=== PATIENT | male | born 1955 | race Caucasian/White ===

== ENCOUNTER 2017-08-04 12:06 | Inpatient (IN) ==
[2017-08-04] MEDS ORDERED: LEVOFLOXACIN INJ 750 MG in PREMIX 1 EACH IV STA (12:24)
[2017-08-04] MEDS ORDERED: methylPREDNISolone SOD SUC 125 MG/2 ML VIAL IV STA (12:24)
[2017-08-04] MEDS ORDERED: ALBUTEROL 2.5 MG/3 ML NEB RESP TX SCH (12:30)
[2017-08-04 12:33] LABS: Basophils % 0.5 % (0.0-0.8); Eosinophils # 0.1 10*3/uL (0.0-0.87); Eosinophils % 1.3 % (0.00-10.9); Hematocrit 44.4 VOL% (42.0-52.0); Hemoglobin 14.5 GM/DL (14.0-18.0); Immature Granulocytes % 0.3 %; Immature Granulocytes Absolute 0.02 #; Lymphocytes # 2.1 10*3/uL (1.4-4.0); Lymphocytes % 34.3 % (21.2-54.2); Mean Corpuscular HGB Conc 32.7 GM/DL (32-36); Mean Corpuscular Hemoglobin 32 PG (27-34); Mean Corpuscular Volume 98.9 FL (87-102); Mean Platelet Volume 10.6 FL (9.6-12.0); Monocytes # 0.7 10*3/uL (0.11-0.8); Monocytes % 11.9 % (1.7-12.7); Neutrophils # 3.2 10*3/uL (1.4-7.4); Neutrophils % 51.7 % (38.7-73.9); Platelet Count 114 T/CUMM (130-400); Red Blood Count 4.49 MC/CUMM (3.8-5.5); Red Cell Distribution Width 13.2 % (9.3-17.3); White Blood Count 6.2 T/CUMM (4-12)
[2017-08-04 12:49] LABS: Alanine Aminotransferase 52 U/L (16-61); Albumin 3.7 G/DL (3.4-5.0); Alkaline Phosphatase 68 U/L (45-117); Aspartate Amino Transferase 52 U/L (0-37); Bilirubin,Total < 0.39 MG/DL (0.2-1.0); Blood Urea Nitrogen 19 MG/DL (7-18); Calcium 8.3 MG/DL (8.5-10.1); Glucose 135 MG/DL (74-106); Osmolality,Calculated 282.4 MOS/KG (273-304); Sodium 140 MMOL/L (136-145); Total Protein 6.4 G/DL (6.4-8.3); Troponin I Only < 0.015 NG/ML (0.00-0.045)
[2017-08-04] MEDS ORDERED: methylPREDNISolone SOD SUC 125 MG/2 ML VIAL ONE (12:51)
[2017-08-04] MEDS ORDERED: LEVOFLOXACIN INJ 150 ML IV ONE (12:51)
[2017-08-04 12:59] LABS: ABG Base Excess 0.7 MMOL/L (-2.5-2.5); ABG Oxygen Saturation 60.8 % (95-100); ABG PCO2 49.6 MM HG (35-48); ABG PH 7.354 (7.35-7.45); ABG TCO2 28.5 MMOL/L (23-27)
[2017-08-04 13:01] LABS: ABG PO2 36.8 MM HG (80-95)
[2017-08-04] MEDS ORDERED: ONDANSETRON 4 MG/2 ML VIAL IV PRN (16:42)
[2017-08-04] MEDS ORDERED: ACETAMINOPHEN 325 MG TABLET PO PRN (16:42)
[2017-08-04 18:03] LABS: ABG Base Excess -0.9 MMOL/L (-2.5-2.5); ABG HCO3 23.8 MMOL/L (20-26); ABG Oxygen Saturation 96.3 % (95-100); ABG PH 7.393 (7.35-7.45); ABG PO2 86.7 MM HG (80-95); ABG TCO2 25.1 MMOL/L (23-27)
[2017-08-04] MEDS ORDERED: ALBUTEROL 2.5 MG/3 ML NEB RESP TX PRN (18:50)
[2017-08-04] MEDS ORDERED: ALBUTEROL NEB SOLN 5 MG/ML 20 ML/BOTTLE CONT NEB ONE (18:50)
[2017-08-04] MEDS: ALBUTEROL/IPRATROPIUM 3 ML NEB RESP TX SCH ×2 (19:00→23:52)
[2017-08-04] MEDS ORDERED: ALBUTEROL/IPRATROPIUM 3 ML NEB RESP TX SCH (19:00)
[2017-08-04] MEDS ORDERED: fentaNYL 100 MCG/2 ML VIAL IV ONE ×2 (19:13→23:52)
[2017-08-04 19:18] LABS: Troponin I Only < 0.015 NG/ML (0.00-0.045)
[2017-08-04] MEDS: VANCOMYCIN INJ 750 MG in SODIUM CHLORIDE 0.9% 250 ML IV SCH (19:35)
[2017-08-04] MEDS ORDERED: methylPREDNISolone SOD SUC 40 MG/1 ML VIAL IV SCH ×2 (20:00→21:00)
[2017-08-04 20:19] LABS: Apearance,Urine Slightly Hazy (Clear); Bacteria,Urine Occasional /HPF (Few); Bilirubin,Urine Negative (Negative); Blood, Urine Negative (Negative); Glucose,Urine (UA) Negative (Negative); Hyaline Casts,Urine 3 /LPF (0-3); Ketones,Urine 80 mg/dL (Negative); Mucus,Urine Few /LPF (Occasional); Nitrite,Urine Negative (Negative); Protein,Urine 30 MG/DL; RBC,Urine 2 /HPF (0-4); Squamous Epithelial Cell,Urine Occasional /HPF (0-10); Urine Color Yellow (Yellow); Urine Specific Gravity 1.025 (1.001-1.035); Urine Urobilinogen < 2.0 EU/DL (0.2-1.0); WBC,Urine 1 /HPF (0-6)
[2017-08-04] MEDS: methylPREDNISolone SOD SUC 40 MG/1 ML VIAL IV SCH (20:32)
[2017-08-05] MEDS: ALBUTEROL/IPRATROPIUM 3 ML NEB RESP TX SCH ×5 (04:03→20:08)
[2017-08-05] MEDS: methylPREDNISolone SOD SUC 40 MG/1 ML VIAL IV SCH ×4 (04:38→20:25)
[2017-08-05 05:07] LABS: Basophils % 0.1 % (0.0-0.8); Hematocrit 41.4 VOL% (42.0-52.0); Hemoglobin 13.8 GM/DL (14.0-18.0); Immature Granulocytes % 0.6 %; Immature Granulocytes Absolute 0.06 #; Lymphocytes # 0.7 10*3/uL (1.4-4.0); Lymphocytes % 7.5 % (21.2-54.2); Mean Corpuscular HGB Conc 33.3 GM/DL (32-36); Mean Corpuscular Hemoglobin 33 PG (27-34); Mean Corpuscular Volume 97.6 FL (87-102); Mean Platelet Volume 11.4 FL (9.6-12.0); Monocytes # 0.6 10*3/uL (0.11-0.8); Monocytes % 5.8 % (1.7-12.7); Neutrophils # 8.5 10*3/uL (1.4-7.4); Platelet Count 116 T/CUMM (130-400); Red Blood Count 4.24 MC/CUMM (3.8-5.5); Red Cell Distribution Width 13.1 % (9.3-17.3); White Blood Count 9.9 T/CUMM (4-12)
[2017-08-05 05:28] LABS: Calcium 8.5 MG/DL (8.5-10.1); Osmolality,Calculated 282.5 MOS/KG (273-304); Potassium 4.1 MMOL/L (3.5-5.1)
[2017-08-05 05:48] LABS: Band Neutrophils 2 % (0-10); Lymphocytes 6 % (20-55); Segmented Neutrophils 86 % (50-85)
[2017-08-05 05:50] LABS: Platelet Estimate Decreased
[2017-08-05 05:51] LABS: Total Cells Counted 100
[2017-08-05] MEDS: VANCOMYCIN INJ 750 MG in SODIUM CHLORIDE 0.9% 250 ML IV SCH (06:29)
[2017-08-05] MEDS: PANTOPRAZOLE 40 MG TABLET PO SCH (08:37)
[2017-08-05] MEDS: ENOXAPARIN 40 MG/0.4 ML SYRINGE SUBCUT SCH (08:37)
[2017-08-05] MEDS: LEVOFLOXACIN INJ 750 MG in PREMIX 1 EACH IV SCH (15:17)
[2017-08-05] MEDS ORDERED: fentaNYL 12 MCG/HR PATCH TRANSDERM SCH (15:30)
[2017-08-05] MEDS ORDERED: fentaNYL 100 MCG/2 ML VIAL IV ONE ×2 (15:52→17:00)
[2017-08-05] MEDS ORDERED: DIGOXIN 0.5 MG/2 ML AMP IV ONE (17:36)
[2017-08-05] MEDS ORDERED: DIGOXIN 0.5 MG/2 ML AMP IV PRN (17:38)
[2017-08-05] MEDS ORDERED: METOPROLOL TARTRATE 5 MG/5 ML VIAL IV ONE (17:46)
[2017-08-05] MEDS ORDERED: ASPIRIN 325 MG TABLET PO ONE (20:11)
[2017-08-05] MEDS ORDERED: ENOXAPARIN 30 MG/0.3 ML SYRINGE SUBCUT ONE (20:12)
[2017-08-05] MEDS ORDERED: NITROGLYCERIN 2% OINT 1 INCH/GM PACK TOP PRN (20:30)
[2017-08-05] MEDS: BUDESONIDE/FORMOTEROL 160-4.5 INHALER 6 GM INH SCH (21:01)
[2017-08-06] MEDS ORDERED: METOPROLOL TARTRATE 5 MG/5 ML VIAL IV PRN
[2017-08-06] MEDS: ALBUTEROL/IPRATROPIUM 3 ML NEB RESP TX SCH ×6 (00:08→19:46)
[2017-08-06] MEDS: methylPREDNISolone SOD SUC 40 MG/1 ML VIAL IV SCH ×4 (01:40→21:34)
[2017-08-06] MEDS: AMINOPHYLLINE 1,000 MG in SODIUM CHLORIDE 0.9% 460 ML IV SCH (08:13)
[2017-08-06 08:39] LABS: CKMB % 3.6 %
[2017-08-06 08:43] LABS: Troponin I Only 9.31 NG/ML (0.00-0.045)
[2017-08-06] MEDS ORDERED: ATORVASTATIN 10 MG TABLET PO SCH (09:00)
[2017-08-06] MEDS: BUDESONIDE/FORMOTEROL 160-4.5 INHALER 6 GM INH SCH ×2 (09:24→21:38)
[2017-08-06] MEDS ORDERED: NICOTINE 14 MG/24 HR PATCH TRANSDERM PRN (09:35)
[2017-08-06] MEDS: LORazepam 2 MG/1 ML VIAL IV PRN ×2 (09:52→21:39)
[2017-08-06] MEDS: PANTOPRAZOLE 40 MG TABLET PO SCH (10:27)
[2017-08-06] MEDS: ENOXAPARIN 40 MG/0.4 ML SYRINGE SUBCUT SCH (11:08)
[2017-08-06 11:24] LABS: CKMB % 3.2 %
[2017-08-06] MEDS: ASPIRIN EC 81 MG TABLET PO SCH (11:28)
[2017-08-06] MEDS: ENOXAPARIN 60 MG/0.6 ML SYRINGE SUBCUT SCH ×2 (12:20→23:23)
[2017-08-06] MEDS: LEVOFLOXACIN INJ 750 MG in PREMIX 1 EACH IV SCH (12:20)
[2017-08-06] MEDS: fentaNYL 100 MCG/2 ML VIAL IV PRN (13:40)
[2017-08-06] MEDS ORDERED: CLOPIDOGREL 300 MG TABLET PO ONE (15:48)
[2017-08-06] MEDS ORDERED: ROSUVASTATIN 20 MG TABLET PO SCH (16:00)
[2017-08-06] MEDS: ROSUVASTATIN 20 MG TABLET PO SCH (17:15)
[2017-08-06] MEDS: METOPROLOL TARTRATE 25 MG TABLET PO SCH (21:29)
[2017-08-07] MEDS: ALBUTEROL/IPRATROPIUM 3 ML NEB RESP TX SCH ×7 (00:01→23:58)
[2017-08-07] MEDS: fentaNYL 100 MCG/2 ML VIAL IV PRN (00:13)
[2017-08-07] MEDS: methylPREDNISolone SOD SUC 40 MG/1 ML VIAL IV SCH ×4 (02:20→20:10)
[2017-08-07] MEDS ORDERED: CLOPIDOGREL 75 MG TABLET PO SCH (09:00)
[2017-08-07] MEDS: PANTOPRAZOLE 40 MG TABLET PO SCH (10:58)
[2017-08-07] MEDS: ASPIRIN EC 81 MG TABLET PO SCH (10:58)
[2017-08-07] MEDS ORDERED: PANTOPRAZOLE 40 MG VIAL IV SCH (11:00)
[2017-08-07] MEDS ORDERED: ASPIRIN 300 MG SUPP RECTAL SCH (11:00)
[2017-08-07] MEDS ORDERED: DIGOXIN 0.5 MG/2 ML AMP IV ONE (11:22)
[2017-08-07 12:14] LABS: Basophils % 0.1 % (0.0-0.8); Hematocrit 40.6 VOL% (42.0-52.0); Hemoglobin 13.1 GM/DL (14.0-18.0); Immature Granulocytes % 0.4 %; Immature Granulocytes Absolute 0.06 #; Lymphocytes # 0.3 10*3/uL (1.4-4.0); Lymphocytes % 2.2 % (21.2-54.2); Mean Corpuscular HGB Conc 32.3 GM/DL (32-36); Mean Corpuscular Hemoglobin 32 PG (27-34); Mean Corpuscular Volume 100.2 FL (87-102); Mean Platelet Volume 12.1 FL (9.6-12.0); Monocytes # 0.7 10*3/uL (0.11-0.8); Monocytes % 5.1 % (1.7-12.7); Neutrophils # 12.4 10*3/uL (1.4-7.4); Neutrophils % 92.2 % (38.7-73.9); Red Blood Count 4.05 MC/CUMM (3.8-5.5); Red Cell Distribution Width 13.2 % (9.3-17.3)
[2017-08-07 12:19] LABS: Platelet Count 57 T/CUMM (130-400); White Blood Count 13.4 T/CUMM (4-12)
[2017-08-07] MEDS: ROSUVASTATIN 20 MG TABLET PO SCH (12:20)
[2017-08-07] MEDS: METOPROLOL TARTRATE 25 MG TABLET PO SCH ×3 (12:20→20:48)
[2017-08-07] MEDS: LORazepam 2 MG/1 ML VIAL IV PRN (12:28)
[2017-08-07 12:34] LABS: Band Neutrophils 2 % (0-10); Lymphocytes 3 % (20-55); Segmented Neutrophils 89 % (50-85); Total Cells Counted 100
[2017-08-07 12:36] LABS: Macrocytosis Slight; Platelet Estimate Decreased
[2017-08-07] MEDS: ENOXAPARIN 60 MG/0.6 ML SYRINGE SUBCUT SCH ×2 (12:38→23:06)
[2017-08-07] MEDS: BUDESONIDE/FORMOTEROL 160-4.5 INHALER 6 GM INH SCH ×2 (12:40→20:48)
[2017-08-07] MEDS: SODIUM CHLORIDE 0.45% 1,000 ML IV SCH ×2 (12:43→15:26)
[2017-08-07 12:46] LABS: CKMB % 1.7 %
[2017-08-07 12:49] LABS: Troponin I Only 25.2 NG/ML (0.00-0.045)
[2017-08-07 12:50] LABS: Magnesium 3.1 MG/DL (1.8-2.4); Potassium 5.4 MMOL/L (3.5-5.1)
[2017-08-07] MEDS: LEVOFLOXACIN INJ 750 MG in PREMIX 1 EACH IV SCH (12:52)
[2017-08-07 13:01] LABS: Calcium 5.5 MG/DL (8.5-10.1)
[2017-08-07] MEDS ORDERED: VANCOMYCIN INJ 1,000 MG in SODIUM CHLORIDE 0.9% 250 ML IV PRN (14:17)
[2017-08-07 14:44] LABS: Potassium 5.3 MMOL/L (3.5-5.1)
[2017-08-07 14:49] LABS: Calcium 5.2 MG/DL (8.5-10.1)
[2017-08-07] MEDS ORDERED: CALCIUM GLUCONATE 3,000 MG in SODIUM CHLORIDE 0.9% 250 ML IV ONE (15:00)
[2017-08-07] MEDS ORDERED: VANCOMYCIN INJ 1,000 MG in SODIUM CHLORIDE 0.9% 250 ML IV ONE (15:00)
[2017-08-07] MEDS: MEROPENEM 500 MG in SYRINGE 1 EACH IV SCH (15:08)
[2017-08-07 15:25] LABS: Apearance,Urine CLOUDY (Clear); Bacteria,Urine Occasional /HPF (Few); Bilirubin,Urine Negative (Negative); Blood, Urine Large mg/dL (Negative); Glucose,Urine (UA) 50 mg/dL (Negative); Ketones,Urine Negative (Negative); Nitrite,Urine Negative (Negative); Protein,Urine 30 MG/DL; RBC,Urine 2 /HPF (0-4); Squamous Epithelial Cell,Urine Occasional /HPF (0-10); Urine Color Dark yellow (Yellow); Urine Specific Gravity 1.012 (1.001-1.035); Urine Urobilinogen < 2.0 EU/DL (0.2-1.0); WBC,Urine 2 /HPF (0-6)
[2017-08-07] MEDS: NOREPINEPHRINE 8 MG in SODIUM CHLORIDE 0.9% 242 ML IV SCH (20:42)
[2017-08-07] MEDS ORDERED: SODIUM CHLORIDE 0.45% 1,000 ML IV SCH (23:00)
[2017-08-08] MEDS: methylPREDNISolone SOD SUC 40 MG/1 ML VIAL IV SCH ×2 (02:05→08:59)
[2017-08-08] MEDS: MEROPENEM 500 MG in SYRINGE 1 EACH IV SCH (02:07)
[2017-08-08] MEDS: ALBUTEROL/IPRATROPIUM 3 ML NEB RESP TX SCH (04:02)
[2017-08-08] MEDS: NOREPINEPHRINE 8 MG in SODIUM CHLORIDE 0.9% 242 ML IV SCH (04:13)
[2017-08-08 05:53] VITALS: BP 58/38
[2017-08-08] MEDS: AMINOPHYLLINE 1,000 MG in SODIUM CHLORIDE 0.9% 460 ML IV SCH (06:52)
== END 2017-08-08 06:00 | disposition expired | DRG 190 ==
LOC: EDUNIT# → EDBD → N.ED 12:06 → SUATTDRO 14:01 → N.EDINP 14:01 → N.5E 15:25 → N.ICU 18:57
PROVIDERS: ADMIT Internal Medicine Infectious Disease; ATTEND Internal Medicine